=== PATIENT | female | born 1975 | race Caucasian/White ===

== ENCOUNTER 2021-05-19 08:48 | Outpatient (CLI) | payer OTHER | END 2021-05-19 08:49 | disposition home or self-care (01) | LOC: CSHULT 08:48 | PROVIDERS: ATTEND Internal Medicine | DX: R10.11 Right upper quadrant pain (principal); K76.89 Other specified diseases of liver | CPT/HCPCS: 76705 ==

== ENCOUNTER 2022-05-17 08:51 | Outpatient (CLI) | payer BC ==
[2022-05-17] MEDS ORDERED: Iopamidol 300 61% 100 ML VIAL FS ONE (10:33)
== END 2022-05-17 08:52 | disposition home or self-care (01) ==
LOC: CSHCT 08:51
PROVIDERS: ATTEND Internal Medicine
DX: R10.9 Unspecified abdominal pain (principal); K76.89 Other specified diseases of liver; K57.30 Diverticulosis of large intestine without perforation or abscess without bleeding; K42.9 Umbilical hernia without obstruction or gangrene
CPT/HCPCS: 74177

== ENCOUNTER 2024-04-28 08:35 | Outpatient (CLI) | payer BC | END 2024-04-28 08:36 | disposition home or self-care (01) | LOC: CSHLAB 08:35 | PROVIDERS: ATTEND Obstetrics & Gynecology | DX: Z01.818 Encounter for other preprocedural examination (principal); D25.0 Submucous leiomyoma of uterus | CPT/HCPCS: 84703; 85027; 86850; 86900; 86901; 93005; 93010 ==

== ENCOUNTER 2024-04-30 09:59 | Day surgery (SDC) | payer BC ==
[2024-04-28 09:34] LABS: Hematocrit 31.5 % (34.9-44.5); Hemoglobin 9.2 g/dL (12.0-15.5); Mean Corpuscular HGB CONC 29.2 g/dL (32.0-36.0); Mean Corpuscular Hemoglobin 20.4 pg (27.0-33.0); Mean Corpuscular Volume 69.7 fL (81.6-98.3); Mean Platelet Volume 10.1 fL (7.4-10.4); Platelet Count 467 10x3/uL (150-450); RBC Distribution Width 20.6 % (11.5-14.5); Red Blood Cell (RBC) Count 4.52 10x6/uL (3.90-5.03); White Blood Cell (WBC) Count 6.6 10x3/uL (3.5-10.5)
[2024-04-28 09:49] LABS: BHCG - Serum Negative (NEGATIVE); Pregs Control Background? CLEAR/WHITE (CLR/WHITE); Pregs Control Bar Appear? YES (CONTROL BAR)
[2024-04-30] MEDS ORDERED: Famotidine/PF 20 mg/2ml Vial ONE (10:31)
[2024-04-30] MEDS ORDERED: Gabapentin 300 MG CAP ONE (10:31)
[2024-04-30] MEDS ORDERED: Bupivacaine HCl 0.5%/Epinephrine 1:200,000/PF 30 ml Vial ONE (11:27)
[2024-04-30] MEDS ORDERED: HYDROmorphone 0.5 MG/0.5 ML SYRINGE ONE (11:29)
[2024-04-30] MEDS ORDERED: PROPOFOL 20 ML ONE (11:31)
[2024-04-30] MEDS ORDERED: Dexamethasone 20 MG/5 ML VIAL ONE (11:31)
[2024-04-30] MEDS ORDERED: Rocuronium Bromide 10 MG/ML (10ML VIAL) ONE (11:31)
[2024-04-30] MEDS ORDERED: Ondansetron PF 4 MG/2 ML Vial ONE ×2 (11:31→15:58)
[2024-04-30] MEDS ORDERED: Lidocaine 1% PF 5 ML VIAL ONE (11:31)
[2024-04-30] MEDS ORDERED: fentaNYL 50 mcg/mL 1 mL Vial ONE (11:31)
[2024-04-30] MEDS ORDERED: CEFAZOLIN 2 GM VIAL ONE (11:49)
[2024-04-30] MEDS ORDERED: Midazolam HCl 2 mg/2 ml Vial ONE (11:58)
[2024-04-30] MEDS ORDERED: Ketorolac Tromethamine 30 MG (1 mL) VIAL ONE (12:35)
[2024-04-30] MEDS ORDERED: SUGAMMADEX SODIUM 200 MG/2 ML VIAL ONE (12:36)
[2024-04-30] MEDS ORDERED: HYDROcodone/Acetaminophen 5/325 mg Tablet ONE (14:49)
== END 2024-04-30 16:25 | disposition home or self-care (01) ==
LOC: CSHSDC 09:59
PROVIDERS: ATTEND Obstetrics & Gynecology
PROC: 0UT24ZZ Resection of Bilateral Ovaries, Percutaneous Endoscopic Approach (ICD-10-PCS; principal; 2024-04-30)
PROC: 0UT94ZZ Resection of Uterus, Percutaneous Endoscopic Approach (ICD-10-PCS; principal; 2024-04-30)
PROC: 0UT74ZZ Resection of Bilateral Fallopian Tubes, Percutaneous Endoscopic Approach (ICD-10-PCS; principal; 2024-04-30)
DX: D25.0 Submucous leiomyoma of uterus (principal); N80.03 Adenomyosis of the uterus; N72 Inflammatory disease of cervix uteri; N87.9 Dysplasia of cervix uteri, unspecified; N88.8 Other specified noninflammatory disorders of cervix uteri; N73.6 Female pelvic peritoneal adhesions (postinfective); F41.9 Anxiety disorder, unspecified; G43.909 Migraine, unspecified, not intractable, without status migrainosus; E66.9 Obesity, unspecified; I47.10 Supraventricular tachycardia, unspecified; K21.9 Gastro-esophageal reflux disease without esophagitis; J45.909 Unspecified asthma, uncomplicated; R00.0 Tachycardia, unspecified; Z79.899 Other long term (current) drug therapy; Z79.51 Long term (current) use of inhaled steroids; Z98.890 Other specified postprocedural states; Z88.2 Allergy status to sulfonamides
CPT/HCPCS: 84703; 85027; 86850; 86900; 86901; 88307; 88342; C1889; J1100; J1885; J2250; J2405; J2704; J3010; J3490; S2900